=== PATIENT | male | born 1985 | race American Indian/Alaskan Native ===

== ENCOUNTER 2020-06-06 00:26 | Emergency (ER) | payer SELFPAY ==
[2020-06-06 01:14] VITALS: BP 131/78
[2020-06-06] MEDS ORDERED: ONDANSETRON 4 MG ODT TAB PO ONE (02:16)
[2020-06-06] MEDS ORDERED: IBUPROFEN 600 MG TAB PO ONE (02:16)
[2020-06-06] MEDS ORDERED: ACETAMINOPHEN 500 MG TAB PO ONE (02:16)
--- NOTE | 2020-06-06 03:13 | XRay Report ---
CHEST 1 VIEW INDICATION / CLINICAL INFORMATION: cough. COMPARISON: None available. FINDINGS: SUPPORT DEVICES: None. HEART / MEDIASTINUM: No significant abnormality. LUNGS / PLEURA: No significant pulmonary or pleural abnormality. No pneumothorax. ADDITIONAL FINDINGS: No significant additional findings. IMPRESSION: 1. No acute findings. Signer Name: Mallika Swartz MD Signed: 06/06/2020 3:08 AM Workstation Name: [id number]
--- NOTE | 2020-06-06 03:24 | Emergency Department Report ---
ED General Adult HPI - General Chief complaint: Weakness Stated complaint: WEAKNESS Source: patient, EMS Mode of arrival: Ambulatory Limitations: No Limitations - History of Present Illness Initial comments: Patient is a 35-year-old white male with a history of paranoid schizophrenia, bipolar disorder, anxiety and depression who presents to the ED with complaint of diffuse generalized weakness and fatigue for the last 12 hours. Patient states that he was recently diagnosed with influenza about 2 weeks ago. Patient states that he fully recovered well but in the last 12 hours he felt more weak with generalized fatigue and mild dry cough. Patient denies fever, chills, nausea, vomiting, abdominal pain, headache, dizziness, syncope, change in vision, diarrhea or palpitations. MD Complaint: Generalized weakness, cough -: Gradual, week(s) (2) Location: chest Radiation: non-radiation Severity scale (0 -10): 0 Quality: dull Consistency: intermittent Improves with: none Worsens with: none Associated Symptoms: denies other symptoms, cough, loss of appetite, malaise, weakness. denies: confusion, chest pain, diaphoresis, fever/chills, headaches, nausea/vomiting, rash, seizure, shortness of breath, syncope Treatments Prior to Arrival: none ED Review of Systems ROS: Stated complaint: WEAKNESS Other details as noted in HPI Constitutional: malaise, weakness. denies: chills, fever Eyes: denies: eye pain, eye discharge, vision change ENT: denies: ear pain, throat pain Respiratory: cough. denies: shortness of breath, wheezing Cardiovascular: denies: chest pain, palpitations Endocrine: no symptoms reported Gastrointestinal: denies: abdominal pain, nausea, diarrhea Genitourinary: denies: urgency, dysuria Musculoskeletal: denies: back pain, joint swelling, arthralgia Skin: denies: rash, lesions Neurological: denies: headache, weakness, paresthesias Psychiatric: denies: anxiety, depression Hematological/Lymphatic: denies: easy bleeding, easy bruising ED Past Medical Hx - Past Medical History Previous Medical History?: Yes Hx Psychiatric Treatment: Yes (Paranoid schizophrenia; Anxiety; Depression; Bipolar) - Surgical History Past Surgical History?: No - Social History Smoking Status: Never Smoker Substance Use Type: None ED Physical Exam - General Limitations: No Limitations General appearance: alert, in no apparent distress - Head Head exam: Present: atraumatic, normocephalic, normal inspection - Eye Eye exam: Present: normal appearance, PERRL, EOMI Pupils: Present: normal accommodation - ENT ENT exam: Present: normal exam, normal orophraynx, mucous membranes moist, TM's normal bilaterally, normal external ear exam - Neck Neck exam: Present: normal inspection, full ROM - Respiratory Respiratory exam: Present: normal lung sounds bilaterally. Absent: respiratory distress, wheezes, rales, rhonchi, chest wall tenderness, accessory muscle use, decreased breath sounds, prolonged expiratory - Cardiovascular Cardiovascular Exam: Present: regular rate, normal rhythm, normal heart sounds. Absent: systolic murmur, diastolic murmur, rubs, gallop - GI/Abdominal GI/Abdominal exam: Present: soft, normal bowel sounds. Absent: tenderness, guarding, rebound, hyperactive bowel sounds, hypoactive bowel sounds, organomegaly - Extremities Exam Extremities exam: Present: normal inspection, full ROM, normal capillary refill - Back Exam Back exam: Present: normal inspection, full ROM. Absent: tenderness, CVA tenderness (R), CVA tenderness (L), muscle spasm, paraspinal tenderness, vertebral tenderness - Neurological Exam Neurological exam: Present: alert, oriented X3, CN II-XII intact, normal gait, reflexes normal - Psychiatric Psychiatric exam: Present: anxious, flat affect - Skin Skin exam: Present: warm, dry, intact, normal color. Absent: rash ED Course Vital Signs 06/06/20 00:39 Temperature 98.3 F Pulse Rate 80 Respiratory 17 Rate Blood Pressure 131/78 O2 Sat by Pulse 95 Oximetry ED Medical Decision Making - EKG Data When compared to previous EKG there are: no significant change - Radiology Data Radiology results: report reviewed, image reviewed Findings [address] [address] XRay Report Signed Patient: KORIN FRANKS MR#: [id number] : 1985 Acct:[id number] Age/Sex: 35 / M ADM Date: 06/06/20 Loc: ED Attending Dr: Ordering Physician: YANNI ALVAREZ Date of Service: 06/06/20 Procedure(s): XR chest 1V ap Accession Number(s): [id number] cc: YANNI ALVAREZ Fluoro Time In Minutes: CHEST 1 VIEW INDICATION / CLINICAL INFORMATION: cough. COMPARISON: None available. FINDINGS: SUPPORT DEVICES: None. HEART / MEDIASTINUM: No significant abnormality. LUNGS / PLEURA: No significant pulmonary or pleural abnormality. No pneumo thorax. ADDITIONAL FINDINGS: No significant additional findings. IMPRESSION: 1. No acute findings. Signer Name: Mallika Swartz MD Signed: 06/06/2020 3:08 AM Workstation Name: [id number] Transcribed By: [facility] Dictated By: Mallika Swartz MD Electronically Authenticated By: Mallika Swartz MD Signed Date/Time: 06/06/20307 DD/ 6 TD/TT: - Medical Decision Making This is a 35-year-old white male with a history of paranoid schizophrenia, bipolar disorder, anxiety and depression who presents to the ED with complaint of diffuse generalized weakness and fatigue for the last 12 hours. Patient states that he was recently diagnosed with influenza about 2 weeks ago. Patient states that he fully recovered well but in the last 12 hours he felt more weak with generalized fatigue and mild dry cough. In the ED, patient is alert and oriented x3 and is not in distress. Chest x-ray shows no acute cardiopulmonary abnormalities or pneumonitis. Patient however declined to have any labs drawn stating that he only wants a place to sleep. Patient was discharged home and advised to follow-up with his primary care physician as needed in 3 to 5 days. Patient was advised to return to the ED immediately if symptoms get worse. - Differential Diagnosis Pneumonia; bronchitis; URI; viral syndrome Critical care attestation.: If time is entered above; I have spent that time in minutes in the direct care of this critically ill patient, excluding procedure time. ED Disposition Clinical Impression: Generalized weakness, Homelessness Disposition: DC-01 TO HOME OR SELFCARE Is pt being admited?: No Does the pt Need Aspirin: No Condition: Stable Instructions: Weakness, [id number] Additional Instructions: Chest x-ray shows no acute cardiopulmonary abnormalities or pneumonitis. Therefore follow-up with your primary care physician in 5 to 7 days for reevaluation. Return to the ED immediately if symptoms get worse. Referrals: [facility] [Outside] - 3-5 Days Time of Disposition: 03:29 Print Language: AUSTRALIAN
== END 2020-06-06 03:35 | disposition home or self-care (01) ==
LOC: ED 00:26
DX: R53.1 Weakness (principal); R05 Cough; Z59.0 Homelessness
CPT/HCPCS: 71045; 99283; Q0162